=== PATIENT | female | born 1950 | race Caucasian/White ===

== ENCOUNTER 2016-12-12 08:26 | Emergency (ER) | payer OTHER, MEDICARE ==
[2016-12-12 08:51] VITALS: BP 135/80; PULSE 85; RESP 16; TEMP 98.4; O2SAT 95
--- NOTE | 2016-12-12 09:12 | UCPHY ---
H & P Time Seen by Provider: 12/12/16 09:02 Patient Type: Established HPI/ROS: This patient complains of significant allergic symptoms. She describes she is typically has seasonal allergies that are worse than usual this here. She describes a week-long history of clear coryza, sneezing and over the past few days itching eyes particular the right eye with mild redness. She has had increased tears from the that I as well but no purulent discharge. She reports mild frontal headaches associated with her symptoms that she has had in the past. She denies any other associated symptoms. She tried Visine a without significant relief and came in for evaluation. ROS: No fevers. No other constitutional symptoms. HEENT: She reports no sinus pain. She denies any visual changes. No trauma to the eye. 5 point ROS is otherwise negative. Past Medical/Surgical History: Seasonal allergies. Hypothyroid Hypertension Dyslipidemia Smoking Status: Never smoked Physical Exam: Physical Exam Vital signs are normal. General: No acute distress HEENT: Atraumatic. Nose: Clear discharge bilaterally. No sinus tenderness to percussion. Oropharynx is clear. Eyes: Pupils equal and react to light. Extraocular motions are intact. She has mild conjunctival injection to the right eye more than left. No purulent discharge. No periorbital findings or eyelid findings. Lungs: No respiratory distress. Clear to auscultation bilaterally. Cardiac: Regular rate and rhythm with no murmur gallop or rub. Skin: No rash or pallor. Neuro: Alert with no sensorimotor deficits. Initial differential diagnosis: Allergic conjunctivitis versus viral conjunctivitis, doubt bacterial conjunctivitis Constitutional: Initial Vital Signs Temperature (C) 36.9 C 12/12/16 08:47 Heart Rate 85 12/12/16 08:47 Respiratory Rate 16 12/12/16 08:47 Blood Pressure 135/80 H 12/12/16 08:47 O2 Sat (%) 95 12/12/16 08:47 O2 Delivery Mode Room Air Allergies/Adverse Reactions: Penicillins Allergy (Verified 12/12/16 08:51) Sulfa (Sulfonamide Antibiotics) Allergy (Verified 12/12/16 08:51) Home Medications: Medication Instructions Recorded Levothyroxine [Synthroid 50 mcg 04/15/16 (*)] Lisinopril 04/15/16 Simvastatin 04/15/16 Fluticasone Nasal [Flonase Nasal 2 sprays NASAL DAILY #1 mdi 12/12/16 [place]] Loteprednol Etabonate [Alrex] 2 drops OP QID PRN #5 ml 12/12/16 Medical Decision Making ED Course/Re-evaluation: I counseled the patient regarding allergic conjunctivitis. Departure - Departure Disposition: Home, Routine, Self-Care Clinical Impression: Allergic conjunctivitis Qualifiers: Laterality: right Qualified Code(s): H10.11 - Acute atopic conjunctivitis, right eye Condition: Good Instructions: Allergic Rhinitis (ED) Additional Instructions: Diagnoses: 1. Allergic rhinitis 2. Allergic conjunctivitis Plan: Valtrex eye drops as prescribed Flonase steroid nasal spray Continue antihistamine Call the forwarder operator listed below for further evaluation if her symptoms are not improving with treatment plan over the next 3-5 days. Return for any significant worsening of symptoms despite the treatment plan. Referrals: BIRDIE VARGHESE [Other] - As per Instructions Olegario Rodarte MD [Medical Doctor] - As per Instructions Prescriptions: Fluticasone Nasal [Flonase Nasal [place]] 2 sprays NASAL DAILY #1 mdi Loteprednol Etabonate [Alrex] 2 drops OP QID PRN #5 ml PRN Reason: allergic conjunctivitis - PQRS PQRS Measurement: 134: Depression screening and followup, PRIME MD-PHQ2 (12 years and older) Over the last 2 weeks, how often have you been bothered by any of the following problems? 1. Feeling down, depressed, or hopeless? 2. Little interest or pleasure in doing things? Patient answered no to both 1 and 2 130: Documentation of medications. Reviewed all patient medications, doses, route and frequency. 226: Do you smoke? [No.] 47: 65 and older: Advanced care planning. Patient designates surrogate decision maker as spouse 51: 18 years old and older with diagnosis of COPD, spirometry performance. NA 52: 18 years old and older with COPD and symptoms of COPD or FEV1<60% predicted prescribed a B Agonist. NA
== END 2016-12-12 09:27 | disposition home or self-care (01) ==
LOC: CED 08:26
DX: H10.11 Acute atopic conjunctivitis, right eye (principal); J30.9 Allergic rhinitis, unspecified
CPT/HCPCS: 99214-PO; G0463-PO

== ENCOUNTER 2017-09-16 18:14 | Emergency (ER) | payer OTHER, MEDICARE ==
[2017-09-16 18:30] VITALS: BP 154/89; PULSE 75; RESP 18; TEMP 98; O2SAT 95
--- NOTE | 2017-09-16 18:41 | EDPHY ---
H & P Stated Complaint: c/o cough and flu like s/s x 1 wk Time Seen by Provider: 09/16/17 18:33 HPI/ROS: CHIEF COMPLAINT: Cough, short of breath HISTORY OF PRESENT ILLNESS: The patient is a 67-year-old female with history of hypertension hypothyroid who comes to the emergency department complaining of a cough and shortness of breath. She states that she has had upper respiratory symptoms that she presumes the flu for the last 10 days. She has had body aches, chills, fevers, sinus congestion, mild sore throat and a cough. No GI symptoms. Her symptoms overall have improved except the cough worsened yesterday and she had trouble sleeping last night especially while lying flat. She denies any chest pain. She denies any history of cardiac disease or heart failure. No edema. No recent travel. No pleuritic pain. REVIEW OF SYSTEMS: Constitutional: See HPI EENTM: See HPI Respiratory: See HPI Cardiac: denies: chest pain, irregular heart rate, lightheadedness, palpitations Gastrointestinal/Abdominal: denies: abdominal pain, diarrhea, nausea, vomiting, blood streaked stools Genitourinary: denies: dysuria, frequency, hematuria, pain Musculoskeletal: denies: joint pain, muscle pain Skin: denies: lesions, rash, jaundice, bruising Neurological: denies: headache, numbness, paresthesia, tingling, dizziness, weakness Hematologic/Lymphatic: denies: blood clots, easy bleeding, easy bruising Immunologic/allergic: denies: HIV/AIDS, transplant EXAM: GENERAL: Well-appearing, well-nourished and in no acute distress. HEAD: Atraumatic, normocephalic. EYES: Pupils equal round and reactive to light, extraocular movements intact, sclera anicteric, conjunctiva are normal. ENT: TMs normal, nares patent, oropharynx clear without exudates. Moist mucous membranes. NECK: Normal range of motion, supple without lymphadenopathy or JVD. LUNGS: Breath sounds clear to auscultation bilaterally and equal. No wheezes rales or rhonchi. HEART: Regular rate and rhythm without murmurs, rubs or gallops. ABDOMEN: Soft, nontender, normoactive bowel sounds. No guarding, no rebound. No masses appreciated. BACK: No CVA tenderness, no spinal tenderness, step-offs or deformities EXTREMITIES: Normal range of motion, no pitting or edema. No clubbing or cyanosis. NEUROLOGICAL: Cranial nerves II through XII grossly intact. Normal speech, normal gait. 5/5 strength, normal movement in all extremities, normal sensation PSYCH: Normal mood, normal affect. SKIN: Warm, dry, normal turgor, no visible rashes or lesions. Source: Patient Exam Limitations: No limitations - Personal History Current Tetanus Diphtheria and Acellular Pertussis (TDAP): Yes - Medical/Surgical History Hx Asthma: No Hx Chronic Respiratory Disease: No Hx Diabetes: No Hx Cardiac Disease: No Hx Renal Disease: No Hx Cirrhosis: No Hx Alcoholism: No Other PMH: appy, tonsils,htn,thyroid - Family History Significant Family History: No pertinent family hx - Social History Smoking Status: Never smoked Alcohol Use: Sober Drug Use: None Constitutional: Initial Vital Signs Temperature (C) 36.6 C 09/16/17 18:28 Heart Rate 75 09/16/17 18:28 Respiratory Rate 18 09/16/17 18:28 Blood Pressure 154/89 H 09/16/17 18:28 O2 Sat (%) 95 09/16/17 18:28 O2 Delivery Mode Room Air Allergies/Adverse Reactions: Penicillins Allergy (Verified 12/12/16 08:51) Sulfa (Sulfonamide Antibiotics) Allergy (Verified 12/12/16 08:51) Home Medications: Medication Instructions Recorded Levothyroxine [Synthroid 50 mcg 04/15/16 (*)] Lisinopril 04/15/16 Simvastatin 04/15/16 Loteprednol Etabonate [Alrex] 2 drops OP QID PRN #5 ml 12/12/16 guaiFENesin/PSEUDOEPHEDRNE HCL 1 each PO BID #10 tab.er.12h 09/16/17 [Mucinex D ER Tablet] Medical Decision Making - Diagnostics Imaging Results: Imaging Impressions Chest X-Ray 09/16/17 18:40 Impression: Mild peribronchial thickening suggesting airways disease/bronchitis. Imaging: Discussed imaging studies w/ call or contact centre operator Radiologist ED Course/Re-evaluation: 7:00 p.m. we discussed the patient's x-ray then flu swab which are reassuring. I will treat her with Mucinex and decongestant. She is happy with this and declines further workup or testing at this time. We discussed indications for returning. Differential Diagnosis: Partial list of the Differential diagnosis considered include but were not limited to; upper respiratory tract infection, influenza, bronchitis, viral syndrome and although unlikely based on the history and physical exam, I also considered pneumonia, sepsis, acute coronary disease, pulmonary edema. I discussed these differential diagnoses and the plan with the patient as well as the usual and expected course. The patient understands that the diagnosis is provisional and that in medicine we are not always correct and that further workup is often warranted. Usual and customary warnings were given. All of the patient's questions were answered. The patient was instructed to return to the emergency department should the symptoms at all worsen or return, otherwise to followup with the physician as we discussed. - Data Points Laboratory Results: 09/16/17 18:45 Influenza A,B Rapid NEGATIVE FOR FLU (NEGATIVE) Departure - Departure Disposition: Home, Routine, Self-Care Clinical Impression: Upper respiratory tract infection Qualifiers: URI type: unspecified viral URI Qualified Code(s): J06.9 - Acute upper respiratory infection, unspecified Condition: Fair Instructions: Upper Respiratory Infection (ED) Referrals: BIRDIE VARGHESE PERFORATOR OPERATOR [facility] [Other] - As per Instructions Prescriptions: guaiFENesin/PSEUDOEPHEDRNE HCL [Mucinex D ER Tablet] 1 each PO BID #10 tab.er.12h
== END 2017-09-16 19:10 | disposition home or self-care (01) ==
LOC: CED 18:14
DX: J06.9 Acute upper respiratory infection, unspecified (principal); I10 Essential (primary) hypertension
CPT/HCPCS: 71046-PO; 87400-PO